=== PATIENT | male | born 1970 | race Caucasian/White ===

== ENCOUNTER → 2019-04-15 | Outpatient (CLI) | payer BC ==
--- NOTE | 2019-04-15 12:47 | CT ---
EXAMINATION TYPE: CT chest w con DATE OF EXAM: 04/15/2019 COMPARISON: None available HISTORY: 48-year-old male Pleural scarring TECHNIQUE: Contiguous axial scanning of the chest after the administration of 100 mL of Isovue 300. Coronal/sagittal reconstructions performed. CT DLP: 436.6mGycm. Automatic exposure control utilized for a dose reduction. FINDINGS: Heart normal size without pericardial effusion. Coronary vessel calcifications are present. Aorta normal caliber with conventional arch vessel branching anatomy. Prominent but nonenlarged subcarinal lymph node at 1 cm. No thoracic lymphadenopathy by CT size crite dejah. Borderline enlarged caliber to the main right pulmonary artery at 2.8 cm may reflect underlying pulmo nary arterial hypertension. No consolidation or pleural effusion. There is a 3 mm left upper lobe pulmonary nodule, axial image 1 3. Visualized upper abdomen shows no gross abnormality. Bones: No osseous destructive process. Superior endplate Schmorl's node of T3. IMPRESSION: 1. No acute pulmonary process. Note that the patient's outside radiograph is not available for review and correlation. 2. A 3 mm left upper lobe pulmonary nodule. Twelve-month follow-up CT recommended to reassess.
== END | disposition home or self-care (01) ==
LOC: RADCTMAIN 10:40
PROVIDERS: ATTEND Family Medicine
DX: R91.1 Solitary pulmonary nodule (principal); J94.8 Other specified pleural conditions
CPT/HCPCS: 82565; 84520; 71260; 36415; Q9967